=== PATIENT | male | born 1990 | race Hispanic/Latino ===

== ENCOUNTER 2022-06-20 19:28 | Emergency (ER) | payer BC ==
--- OUTSIDE RECORDS SUMMARY | 2022-06-20 19:31 | XMS REPORT | Continuity of Care Document ---
:1990 Author Organization [facility] t Address [address] [place] [address] Care Team Providers Name Role Phone PCP, PATIENT DOES NOT HAVE A Primary Care Physician UnavailEvelia Marte RN Attending Clinician Unavailable Only, Ang Db Test Attending Clinician Unavailable Aissatou Garcia MD Attending Clinician Doctor Unassigned, Motley Attending Clinician Unavailable BASIL CABRAL Attending Clinician Unavailable Michael Moran Attending Clinician MERLIN MILLER Attending Clinician Unavailable Payers Payer Name Policy Type Policy Number Effective Date Expiration Date [facility] [id number] 2018 00:00:00 Problems Condition Condition Condition Status Onset Resolution Last Treating Co mments Source Name Details Category Date Date Treatment Clinician Date No known No known Disease Unive rs active active ity of problems problems [facility] [place] Allergies, Adverse Reactions, Alerts Allergy Allergy Status Severity Reaction(s) Onset Inactive Treating Comm ents Source Name Type Date Date Clinician NO KNOWN Drug Active Univers ALLERGIE Class ity of S [facility] [place] Social History Social Habit Start Date Stop Date Quantity Comments Source History of tobacco Cigarette Smoker University of use [facility] [place] Exposure to Not sure University SARS-CoV-2 (event) [facility] [place] Cigarettes smoked 2020-09-17 2020-09-17 Univers ity of current (pack per 00:00:00 00:00:00 [facility] ) - Reported Branch Cigarette 2020-09-17 2020-09-17 University of pack-years 00:00:00 00:00:00 [facility] [place] Tobacco use and 2020-09-17 2020-09-17 Never used Universit y of exposure 00:00:00 00:00:00 [facility] [place] Alcohol intake 2020-09-17 2020-09-17 Current drinker of Un iversity of 00:00:00 00:00:00 alcohol (finding) [facility] Alcohol Comment 2018-11-27 2018-11-27 occassional Universi ty of 00:00:00 00:00:00 [facility] [place] Sex [birth year] Universit y of 00:00:00 00:00:00 [facility] [place] Smoking Status Start Date Stop Date Source Current every day smoker 2020-09-17 00:00:00 Uni versity of [facility] [place] Medications Ordered Filled Start Stop Current Ordering Indication Dosage Frequency Signature Comments Components Source Medication Medication Date Date Medication? Clinician (SIG) Name Name traMADoL 50 2019-10 Yes 4647 50mg Take 1 Univ ers mg tablet 1-26 tablet by ity o f 00:00: mouth [place] 00 every 6 Medical (six) Branch hours as needed for Pain (scale 7-10). Indication s: acute pain traMADoL 50 2019-10 Yes 4647 50mg Take 1 Univ ers mg tablet 1-26 tablet by ity o f 00:00: mouth [place] 00 every 6 Medical (six) Branch hours as needed for Pain (scale 7-10). Indication s: acute pain traMADoL 50 2019-10 Yes 4647 50mg Take 1 Univ ers mg tablet 1-26 tablet by ity o f 00:00: mouth [place] 00 every 6 Medical (six) Branch hours as needed for Pain (scale 7-10). Indication s: acute pain traMADoL 50 2019-10 Yes 4647 50mg Take 1 Univ ers mg tablet 1-26 tablet by ity o f 00:00: mouth [place] 00 every 6 Medical (six) Branch hours as needed for Pain (scale 7-10). Indication s: acute pain traMADoL 50 2019-10 Yes 4647 50mg Take 1 Univ ers mg tablet 1-26 tablet by ity o f 00:00: mouth [place] [id number] every 6 Medical (six) Branch hours as needed for Pain (scale 7-10). Indication s: acute pain Immunizations Ordered Filled Immunization Date Status Comments [facility] Immunization Name Name SARS-COV-2 COVID-19 2021-02-27 Completed Unive rsity of PFIZER VACCINE 00:00:00 [facility] SARS-COV-2 COVID-19 2021-02-27 Completed Unive rsity of PFIZER VACCINE 00:00:00 [facility] SARS-COV-2 COVID-19 2021-02-27 Completed Unive rsity of PFIZER VACCINE 00:00:00 [facility] SARS-COV-2 COVID-19 2021-02-27 Completed Unive rsity of PFIZER VACCINE 00:00:00 [facility] SARS-COV-2 COVID-19 2021-01-30 Completed Unive rsity of PFIZER VACCINE 00:00:00 [facility] SARS-COV-2 COVID-19 2021-01-30 Completed Unive rsity of PFIZER VACCINE 00:00:00 [facility] SARS-COV-2 COVID-19 2021-01-30 Completed Unive rsity of PFIZER VACCINE 00:00:00 [facility] SARS-COV-2 COVID-19 2021-01-30 Completed Unive rsity of PFIZER VACCINE 00:00:00 [facility] Vital Signs Vital Name Observation Time Observation Value Comments Source Systolic blood 2020-09-18 02:23:00 142 mm[Hg] Univer sity of pressure [facility] [place] Diastolic blood 2020-09-18 02:23:00 78 mm[Hg] Unive rsity of pressure [facility] [place] Heart rate 2020-09-18 02:23:00 90 /min [facility] Body temperature 2020-09-18 02:23:00 37.61 Laura [facility] Respiratory rate 2020-09-18 02:23:00 18 /min [facility] Body height 2020-09-18 02:23:00 170.2 cm [facility] Body weight 2020-09-18 02:23:00 88.451 kg [facility] BMI 2020-09-18 02:23:00 30.54 kg/m2 Universi ty of [facility] [place] Oxygen saturation in 2020-09-18 02:23:00 99 /min [facility] Arterial blood by [facility] Pulse oximetry [place] Procedures Procedure Date / Time Performed Performing Clinician Gaudencio patsy ASSIGNMENT OF BENEFITS 2021-06-15 22:33:34 Doctor Unassigned, No [facility] Name [facility] Branch XR FOOT 3+ VW LEFT 2020-09-18 02:58:36 Michael Grossman [facility] CONSENT/REFUSAL FOR 2020-09-18 02:16:38 Doctor Unassigned, No [facility] AND Name [facility] TREATMENT NOTICE OF PRIVACY 2020-09-18 02:16:24 Doctor Unassigned, No Univ [facility] PRACTICES Name [facility] Encounters Start End Encounter Admission Attending Care Care Encounter Source Date/Time Date/Time Type Type Clinicians Facility Department ID 2021-08-21 Emergency [facility] [id number] Univers 07:55:51 ity [facility] 2021-06-17 2021-06-17 Letter JOSÉ MIGUEL Krueger [id number] Univers 00:00:00 00:00:00 [facility] [place] [id number] ity of [facility] [id number] Ciro as [id number] [address] 2021-06-15 2021-06-15 Laboratory Only, Ang Db Test [facility] 1.2.8 [id number] Univers 17:36:10 17:46:10 Only [facility] [id number] ity [facility] [id number] Ciro as Prosper?Blea [id number] [place] [address] Branch [facility] 2021-06-15 2021-06-15 Outpatient R [facility] [id number] Univers 17:30:00 17:30:00 [id number] ity of [facility] [place] 2021-06-15 2021-06-15 Outpatient R [facility] [id number] Univers 17:30:00 17:30:00 ity [facility] 2021-06-15 2021-06-15 Orders Doctor VALDEZ [id number] Univers 00:00:00 00:00:00 Only Unassigned, OLVIN [id number] ity of [facility] [id number] [facility] [id number] [facility] 009 Branch 2021-02-27 2021-02-27 [facility] [id number] Univers 14:20:00 14:20:00 [facility] 2021-02-20 2021-02-20 Outpatient [facility] [id number] Univers 17:40:00 17:40:00 [facility] 2021-01-30 2021-01-30 Outpatient [facility] [id number] Univers 16:55:00 16:55:00 [facility] 2021-01-26 2021-01-26 Outpatient [facility] [id number] [facility] 00:00:00 00:00:00 2020-09-17 2020-09-17 Emergency [facility] [id number] Univers 20:25:00 22:10:00 Michael Catalan [id number] i [facility] [id number] [facility] [id number] [facility] 084 Branch 2018-12-11 2018-12-11 Outpatient [facility] [id number] Univers 00:00:00 00:00:00 MERLIN [id number] [facility] Results Test Test Test Results Result Source Description Time Comments Comments XR FOOT 3+ VW 2020-08- Oblique mid diaphyseal University of LEFT 27 fracture involving the [place] [facility] 03:46:11 proximal phalanx of the B ranch fifthdigit as described above. RL: 135 END OF REPORT ORDERING PHYSICIAN: MICHAEL GROSSMAN CLINICAL INFORMATION: ? left 5th toe pain COMPARISON: None Technique: ? 3 views of the left foot Findings: Oblique mid diaphyseal fracture of the proximal phalanx of the fifth digitis seen. Displacement measures less than 2 mm. Soft tissue swelling is alsoseen. Alignment at the Lisfranc joint remains well-maintained. Noradiopaque foreign bodies are seen in the soft tissues. [facility], Radiant Results Inft User - 09/17/2020 9:47 PM CSTORDERING PHYSICIAN: MICHAEL Mckenna MEDINACLINICAL INFORMATION: left 5th toe pain COMPARISON: NoneTechnique: 3 views of the left footFindings:Oblique mid diaphyseal fracture of the proximal phalanx of the fifth digitis seen. Displacement measures less than 2 mm. Soft tissue swelling is alsoseen. Alignment at the Lisfranc joint remains well-maintained. Noradiopaque foreign bodies are seen in the soft tissues.IMPRESSIONObliqu e mid diaphyseal fracture involving the proximal phalanx of the fifthdigit as described above.RL: 135END OF REPORT
[2022-06-20] MEDS ORDERED: ASPIRIN 81 MG CHEWABLE TABLET ONE (21:11)
[2022-06-20 21:23] LABS: Absolute Lymphocytes (CBC) 3.1 K/uL (0.7-4.9); Hematocrit 45.7 % (39.6-49.0); Lymphocytes % 32.3 % (15.3-44.8); MPV 7.5 fL (7.6-11.3); RBC Red Blood Cell Count 4.97 M/uL (4.33-5.43)
[2022-06-20 21:39] LABS: Potassium 3.8 mmol/L (3.5-5.1); Troponin High Sensitivity 5.5 pg/mL (<58.9)
--- NOTE | 2022-06-20 21:58 | RAD REPORT ---
EXAM DESCRIPTION: RAD - Chest Single View - 06/20/2022 9:42 pm CLINICAL HISTORY: CHEST PAIN COMPARISON: None TECHNIQUE: AP portable chest image was obtained 06/20/2022 9:42 pm . FINDINGS: Lungs are clear. Heart and vasculature are normal. No measurable pleural effusion and no p neumothorax. No acute bony abnormality seen. No acute aortic findings suspected. IMPRESSION: No acute cardiopulmonary process.
--- NOTE | 2022-06-20 22:10 | ER ---
Nurse's Notes [facility] Name: Caleb Gonzalez Age: 31 yrs Sex: Male : 1990 Arrival Date: 06/20/2022 Time: 19:30 Bed 25 Private MD: Diagnosis: Chest pain, unspecified Presentation: 06/20 20:02 Chief complaint: Patient states: Pt reports sharp mid-sternal CP that began 2 days ago kb3 that comes and goes, nothing makes it worse pr better, denies N/V/C/D. Coronavirus screen: Vaccine status: Patient reports receiving the 2nd dose of the covid vaccine. Client denies travel out of the [place] in the last 14 days. At this time, the client does not indicate any symptoms associated with coronavirus-19. Ebola Screen: Patient negative for fever greater than or equal to 101.5 degrees Fahrenheit, and additional compatible Ebola Virus Disease symptoms Patient denies exposure to infectious person. Patient denies travel to an Ebola-affected area in the 21 days before illness onset. No symptoms or risks identified at this time. Initial Sepsis Screen: Does the patient meet any 2 criteria? No. Patient's initial sepsis screen is negative. Does the patient have a suspected source of infection? No. Patient's initial sepsis screen is negative. Risk Assessment: Do you want to hurt yourself or someone else? Patient reports no desire to harm self or others. Onset of symptoms was June 18, 2022. 20:02 Method Of Arrival: Ambulatory kb3 20:02 Acuity: PATRICIO 3 kb3 Triage Assessment: 20:05 General: Appears in no apparent distress. comfortable, Behavior is calm, cooperative. kb3 Pain: Complains of pain in mid-sternal area Pain does not radiate. Pain currently is 0 out of 10 on a pain scale. Quality of pain is described as sharp, Pain began 2-3 days ago. Cardiovascular: Reports chest pain. Historical: - Allergies: 20:05 No Known Allergies; kb3 - Home Meds: 20:05 None [Active]; kb3 - PMHx: 20:05 None; kb3 - PSHx: 20:05 None; kb3 - Immunization history:: Adult Immunizations up to date, Client reports receiving the 2nd dose of the Covid vaccine, Last tetanus immunization: up to date. - Social history:: Smoking status: Reported history of juuling and/or vaping. Screenin:00 Abuse screen: Denies threats or abuse. Nutritional screening: No deficits noted. bb Tuberculosis screening: No symptoms or risk factors identified. Fall Risk None identified. Assessment: 21:00 General: Appears in no apparent distress. Behavior is calm, cooperative. Pain: bb Complains of pain in chest Is intermittent, lasting a few seconds. Neuro: Level of Consciousness is awake, alert, obeys commands, Oriented to person, place, time, situation. Cardiovascular: Capillary refill < 3 seconds Patient's skin is warm and dry. Respiratory: Respiratory effort is even, unlabored, Respiratory pattern is regular. GI: No signs and/or symptoms were reported involving the gastrointestinal system. Derm: Skin is pink, warm \T\ dry. Musculoskeletal: Circulation, motion, and sensation intact. Vital Signs: 20:02 BP 110 / 61; Pulse 64; Resp 18; Temp 98.4; Pulse Ox 100% ; Weight 90.72 kg; Height 5 kb3 ft. 7 in. (170.18 cm); 22:18 BP 117 / 65; Pulse 74; Resp 19 S; Pulse Ox 100% on R/A; as6 20:02 Body Mass Index 31.32 (90.72 kg, 170.18 cm) kb3 ED Course: 19:30 Patient arrived in ED. bp1 19:45 Asha Azul FNP-C is PHCP. snw 19:45 Axel Tarango MD is Attending Physician. snw 20:05 Triage completed. kb3 20:05 Arm band placed on right wrist. kb3 21:00 Patient has correct armband on for positive identification. Bed in low position. Call bb light in reach. Side rails up X2. environmental monitoring technician on. Pulse ox on. NIBP on. Warm blanket given. 21:00 No provider procedures requiring assistance completed. bb 21:02 Falguni Núñez, BERNICE is Primary Nurse. 3 21:09 Primary Nurse role handed off by Falguni Núñez, BERNICE as6 21:09 Ayan Schaefer, BERNICE is Primary Nurse. as6 21:10 Initial lab(s) drawn, by mi, sent to lab. Inserted saline lock: 20 gauge in left bb antecubital area, using aseptic technique. Blood collected. Patient maintains SpO2 saturation greater than 95% on room air. 21:44 XRAY Chest (1 view) In Process Unspecified. EDMS 22:18 IV discontinued, intact, bleeding controlled, No redness/swelling at site. Pressure as6 dressing applied. Administered Medications: 21:03 Drug: Aspirin Chewable Tablet 324 mg Route: PO; eh3 21:48 Follow up: Response: No adverse reaction bb Medication: 21:00 VIS not applicable for this client. bb Outcome: 22:10 Discharge ordered by MD. prescott 22:18 Discharged to home ambulatory. as6 22:18 Condition: stable 22:18 Discharge instructions given to patient, Instructed on discharge instructions, follow up and referral plans. Demonstrated understanding of instructions, follow-up care. 22:19 Patient left the ED. as6 Signatures: Dispatcher [employer] EDMS Asha Azul, PLANE TABLEMAN-C PLANE TABLEMAN-Csnw Clara Jarvis, RN RN bb Chaya Valerio Ashby, RN RN as6 Falguni Núñez RN RN eh3 Sarah Cisneros, RN RN kb3
--- NOTE | 2022-06-20 22:11 | EDPHYS ---
Physician Documentation [facility] Name: Caleb Gonzalez Age: 31 yrs Sex: Male : 1990 Arrival Date: 06/20/2022 Time: 19:30 Bed 25 Private MD: Axel Carrizales HPI: 06/20 22:12 This 31 yrs old Male presents to ER via Ambulatory with complaints of Chest snw Pain > 30 y/o. 22:12 The patient or guardian reports chest pain that is located primarily in the substernal snw area. The pain does not radiate. Associated signs and symptoms: The patient has no apparent associated signs or symptoms. The chest pain is described as sharp. Duration: The patient or guardian reports multiple episodes, that wax and wane, with no pattern. Severity of pain: At its worst the pain was mild moderate. The patient has experienced similar episodes in the past. The patient has not recently seen a physician. pt on testosterone therapy, requested pt follow up and make sure replacement is indicated. Discussed side effects and dangers.. Historical: - Allergies: 20:05 No Known Allergies; kb3 - Home Meds: 20:05 None [Active]; kb3 - PMHx: 20:05 None; kb3 - PSHx: 20:05 None; kb3 - Immunization history:: Adult Immunizations up to date, Client reports receiving the 2nd dose of the Covid vaccine, Last tetanus immunization: up to date. - Social history:: Smoking status: Reported history of juuling and/or vaping. ROS: 22:12 Constitutional: Negative for fever, chills, and weight loss, Eyes: Negative for injury, snw pain, redness, and discharge, ENT: Negative for injury, pain, and discharge, Neck: Negative for injury, pain, and swelling, Respiratory: Negative for shortness of breath, cough, wheezing, and pleuritic chest pain, Abdomen/GI: Negative for abdominal pain, nausea, vomiting, diarrhea, and constipation, Back: Negative for injury and pain, : Negative for injury, bleeding, discharge, and swelling, MS/Extremity: Negative for injury and deformity, Skin: Negative for injury, rash, and discoloration, Neuro: Negative for headache, weakness, numbness, tingling, and seizure, Psych: Negative for depression, anxiety, suicide ideation, homicidal ideation, and hallucinations. 22:12 Cardiovascular: Positive for chest pain, of the mid-sternal area. Exam: 22:12 Constitutional: This is a well developed, well nourished patient who is awake, alert, snw and in no acute distress. Head/Face: Normocephalic, atraumatic. Eyes: Pupils equal round and reactive to light, extra-ocular motions intact. Lids and lashes normal. Conjunctiva and sclera are non-icteric and not injected. Cornea within normal limits. Periorbital areas with no swelling, redness, or edema. ENT: Nares patent. No nasal discharge, no septal abnormalities noted. Tympanic membranes are normal and external auditory canals are clear. Oropharynx with no redness, swelling, or masses, exudates, or evidence of obstruction, uvula midline. Mucous membranes moist. Neck: Trachea midline, no thyromegaly or masses palpated, and no cervical lymphadenopathy. Supple, full range of motion without nuchal rigidity, or vertebral point tenderness. No Meningismus. Chest/axilla: Normal chest wall appearance and motion. Nontender with no deformity. No lesions are appreciated. Cardiovascular: Regular rate and rhythm with a normal S1 and S2. No gallops, murmurs, or rubs. Normal PMI, no JVD. No pulse deficits. Respiratory: Lungs have equal breath sounds bilaterally, clear to auscultation and percussion. No rales, rhonchi or wheezes noted. No increased work of breathing, no retractions or nasal flaring. Abdomen/GI: Soft, non-tender, with normal bowel sounds. No distension or tympany. No guarding or rebound. No evidence of tenderness throughout. Back: No spinal tenderness. No costovertebral tenderness. Full range of motion. Skin: Warm, dry with normal turgor. Normal color with no rashes, no lesions, and no evidence of cellulitis. MS/ Extremity: Pulses equal, no cyanosis. Neurovascular intact. Full, normal range of motion. Neuro: Awake and alert, GCS 15, oriented to person, place, time, and situation. Cranial nerves II-XII grossly intact. Motor strength 5/5 in all extremities. Sensory grossly intact. Cerebellar exam normal. Normal gait. Psych: Awake, alert, with orientation to person, place and time. Behavior, mood, and affect are within normal limits. Vital Signs: 20:02 BP 110 / 61; Pulse 64; Resp 18; Temp 98.4; Pulse Ox 100% ; Weight 90.72 kg; Height 5 kb3 ft. 7 in. (170.18 cm); 22:18 BP 117 / 65; Pulse 74; Resp 19 S; Pulse Ox 100% on R/A; as6 20:02 Body Mass Index 31.32 (90.72 kg, 170.18 cm) kb3 MDM: 20:13 Patient medically screened. snw 22:14 JR Risk Score: 1 - Recent [<24hrs] Severe Angina, TOTAL SCORE = 1. Data reviewed: snw vital signs, nurses notes, lab test result(s), EKG, radiologic studies. Data interpreted: Pulse oximetry: on room air is 100 %. Interpretation: normal. 06/20 20:14 Order name: Basic Metabolic Panel; Complete Time: 21:41 snw 06/20 20:14 Order name: CBC with Diff; Complete Time: 21:34 snw 06/20 20:14 Order name: Troponin HS; Complete Time: 21:41 snw 06/20 20:14 Order name: XRAY Chest (1 view); Complete Time: 22:09 snw 06/20 20:14 Order name: EKG; Complete Time: 20:15 snw 06/20 20:14 Order name: Cardiac monitoring; Complete Time: 21:47 snw 06/20 20:14 Order name: EKG - Nurse/Tech; Complete Time: 21:00 snw 06/20 20:14 Order name: IV Saline Lock; Complete Time: 21:47 snw 06/20 20:14 Order name: Labs collected and sent; Complete Time: 21:47 snw 06/20 20:14 Order name: O2 Per Protocol; Complete Time: 21:48 snw 06/20 20:14 Order name: O2 Sat Monitoring; Complete Time: 21:48 snw EC:16 Rate is 63 beats/min. Rhythm is regular, Normal Sinus Rhythm. QRS [place] is Normal. [place] snw interval is normal. Clinical impression: LVH. Administered Medications: 21:03 Drug: Aspirin Chewable Tablet 324 mg Route: PO; eh3 21:48 Follow up: Response: No adverse reaction bb Disposition Summary: 06/20/22 22:10 Discharge Ordered Location: Home snw Condition: Stable snw Diagnosis - Chest pain, unspecified snw Followup: snw - With: Emergency Department - When: As needed - Reason: Worsening of condition Followup: snw - With: Private Physician - When: 2 - 3 days - Reason: Recheck today's complaints, Continuance of care, Re-evaluation by your physician Discharge Instructions: - Discharge Summary Sheet snw - Nonspecific Chest Pain, Adult snw - Aspirin and Your Heart snw Forms: - Medication Reconciliation Form snw - Thank You Letter snw - Antibiotic Education snw - Prescription Opioid Use snw Signatures: Dispatcher [employer] EDMS Asha Azul, SLEEVER-C SLEEVER-Csnw Falguni Núñez RN RN eh3 Sarah Cisneros RN RN kb3 Clara Jarvis RN bb
[2022-06-20 23:48] VITALS: TEMP 98.4; O2SAT 100
[2022-06-20 23:50] VITALS: BP 117/65
--- NOTE | 2022-06-21 08:14 | EKG ---
Test Date: 2022-06-20 Test Time: 20:14:26 Past Due Accounts Clerk: GRACIELA MEASUREMENT RESULTS: Intervals: Rate: 63 AL: 136 QRSD: 88 QT: 366 QTc: 374 [place]: P: 38 AL: 136 QRS: -9 T: 19 INTERPRETIVE STATEMENTS: Normal sinus rhythm Minimal voltage criteria for LVH, may be normal variant Borderline ECG Compared to ECG 12/10/2015 09:25:24 Left ventricular hypertrophy now present Electronically Signed On 06-21-22 08:12:01 CDT by Nahid Stewart
== END 2022-06-20 22:19 | disposition home or self-care (01) ==
LOC: ER 19:28
DX: R07.89 Other chest pain (principal)
CPT/HCPCS: 36415; 71045; 80048; 84484; 85025; 93005; 99285